=== PATIENT | female | born 1950 | race Hispanic/Latino ===

== ENCOUNTER 2019-09-15 09:22 | Outpatient (CLI) | payer MEDICARE ==
--- NOTE | 2019-09-15 10:10 | Mammography Report ---
DIGITAL DIAGNOSTIC MAMMOGRAM WITH CAD, 09/15/2019 INDICATION: Six-month follow-up asymmetries. ABNORMAL MAMMOGRAM TECHNIQUE: Digital left mammographic imaging was performed. Spot compression views were obtained. This examination was interpreted with the benefit of Computer-aided Detection analysis. COMPARISON: 03/26/2019 and 03/18/2019 FINDINGS: Breast Density: The breast is heterogeneously dense, which may obscure small masses. There is no evidence of dominant mass, suspicious calcifications or architectural distortion in the l eft breast. Previously identified asymmetries are less prominent. IMPRESSION: No mammographic evidence of malignancy. Follow up recommendation: Routine yearly BI-RADS Category 1: Negative. A "normal" or negative report should not discourage follow up or biopsy of a clinically significant f inding. A written summary of these findings will be mailed to the patient. The patient will be entered into a mammography reporting system which will generate a reminder letter for the patient's next appointmen t at the appropriate interval. According to the [employer], yearly mammograms are recommended starting at age 40 and continuing as long as a woman is in good health. Breast MRI is recommended for women with an fercho roximately 20-25% or greater lifetime risk of breast cancer, including women with a strong family his tory of breast or ovarian cancer and women who have been treated for Hodgkin's disease. Signer Name: Dirk Mcmahan MD Signed: 09/15/2019 10:06 AM Workstation Name: [id number]
== END 2019-09-15 09:23 | disposition home or self-care (01) ==
LOC: SPVWC 09:22
PROVIDERS: ATTEND Surgery
DX: N60.12 Diffuse cystic mastopathy of left breast (principal); N60.11 Diffuse cystic mastopathy of right breast

== ENCOUNTER 2020-02-09 08:09 | Outpatient (CLI) | payer MEDICARE ==
--- NOTE | 2020-02-09 09:29 | Mammography Report ---
DIGITAL SCREENING MAMMOGRAM WITH CAD, 02/09/2020 INDICATION: Routine screening mammography. TECHNIQUE: Digital bilateral 2D mammography was obtained in the craniocaudal and mediolateral obliq ue projections. This examination was interpreted with the benefit of Computer-Aided Detection analysi s. COMPARISON: 09/15/2019, 02/04/2019, 02/03/2018, 02/01/2017, 02/01/2015 FINDINGS: Breast Density: The breasts are heterogeneously dense, which may obscure small masses. There is no evidence of dominant mass, suspicious calcifications or architectural distortion in eithe r breast. Small cluster of right breast calcifications has not significantly changed when compared to multiple prior mammograms back to 2014. IMPRESSION: Follow up recommendation: Routine yearly BI-RADS Category 2: Benign. A "normal" or negative report should not discourage follow up or biopsy of a clinically significant f inding. A written summary of these findings will be mailed to the patient. The patient will be entered into a mammography reporting system which will generate a reminder letter for the patient's next appointmen t at the appropriate interval. The [employer] recommends yearly mammograms starting at age 40 and continuing as l tyler as a woman is in good health. Breast MRI is recommended for women with an approximate 20-25% or greater lifetime risk of breast cancer, including women with a strong family history of breast or ova kalyan cancer or who have been treated for Hodgkin's disease. Signer Name: Amara Avery MD Signed: 02/09/2020 9:25 AM Workstation Name: [email or web address]
== END 2020-02-09 08:10 | disposition home or self-care (01) ==
LOC: SPVWC 08:09
PROVIDERS: ATTEND Surgery
DX: Z12.31 Encounter for screening mammogram for malignant neoplasm of breast (principal)
CPT/HCPCS: 77067

== ENCOUNTER 2021-02-14 08:45 | Outpatient (CLI) | payer MEDICARE ==
--- NOTE | 2021-02-15 08:37 | Mammography Report ---
DIGITAL SCREENING MAMMOGRAM WITH CAD, 02/14/2021 CLINICAL INFORMATION / INDICATION: Routine screening mammography. TECHNIQUE: Digital bilateral 2D mammography was obtained in the craniocaudal and mediolateral obliqu e projections. This examination was interpreted with the benefit of Computer-Aided Detection analysis . COMPARISON: 02/09/2020, 09/15/2019, 03/18/2019, 02/04/2019, 02/03/2018 FINDINGS: Breast Density: The breasts are heterogeneously dense, which may obscure small masses. No dominant mass, suspicious calcifications, or architectural distortion in either breast. Few coarse calcifications in the right breast are again noted and appear unchanged. IMPRESSION: No mammographic evidence of malignancy. Follow up recommendation: Routine yearly BI-RADS Category 2: Benign. A "normal" or negative report should not discourage follow up or biopsy of a clinically significant f inding. A written summary of these findings will be mailed to the patient. The patient will be entered into a mammography reporting system which will generate a reminder letter for the patient's next appointmen t at the appropriate interval. The [employer] recommends yearly mammograms starting at age 40 and continuing as l tyler as a woman is in good health. Breast MRI is recommended for women with an approximate 20-25% or greater lifetime risk of breast cancer, including women with a strong family history of breast or ova kaly[place] cancer or who have been treated for Hodgkin's disease. Signer Name: Amara Avery MD Signed: 02/15/2021 8:33 AM Workstation Name: [email or web address]
== END 2021-02-14 08:46 | disposition home or self-care (01) ==
LOC: SPVWC 08:45
PROVIDERS: ATTEND Surgery
DX: Z12.31 Encounter for screening mammogram for malignant neoplasm of breast (principal)
CPT/HCPCS: 77063; 77067

== ENCOUNTER 2022-03-21 12:43 | Outpatient (CLI) | payer MEDICARE ==
--- NOTE | 2022-03-21 14:07 | Mammography Report ---
DIGITAL SCREENING MAMMOGRAM WITH CAD, 03/21/2022 CLINICAL INFORMATION / INDICATION: Routine screening mammography. TECHNIQUE: Digital bilateral 2D mammography was obtained in the craniocaudal and mediolateral oblique projections. This examination was interpreted with the benefit of Computer-Aided Detection analysis. COMPARISON: 02/01/2017 through 02/14/2021. FINDINGS: Breast Density: The breasts are heterogeneously dense, which may obscure small masses. No dominant mass, suspicious calcifications, or architectural distortion in either breast. There is benign-appearing changing nodularity bilaterally. A few benign-appearing calcifications in t he right breast are stable. IMPRESSION: No mammographic evidence of malignancy. Follow up recommendation: Routine yearly screening mammogram. BI-RADS Category 2: BENIGN. A "normal" or negative report should not discourage follow up or biopsy of a clinically significant f inding. A written summary of these findings will be mailed to the patient. The patient will be entered into a mammography reporting system which will generate a reminder letter for the patient's next appointmen t at the appropriate interval. The [employer] recommends yearly mammograms starting at age 40 and continuing as l tyler as a woman is in good health. Breast MRI is recommended for women with an approximate 20-25% or greater lifetime risk of breast cancer, including women with a strong family history of breast or ova kaly[place] cancer or who have been treated for Hodgkin's disease. Signer Name: Leighton Yi MD Signed: 03/21/2022 2:03 PM Workstation Name: [email or web address]
== END 2022-03-21 12:44 | disposition home or self-care (01) ==
LOC: SPVWC 12:43
PROVIDERS: ATTEND Surgery
DX: Z12.31 Encounter for screening mammogram for malignant neoplasm of breast (principal)
CPT/HCPCS: 77067